=== PATIENT | female | born 1985 | race Caucasian/White ===

== ENCOUNTER 2022-09-18 15:49 | Emergency (ER) | payer OTHER, SELFPAY ==
[2022-09-18 15:57] VITALS: BP 131/87; PULSE 142; RESP 18; TEMP 36.6; O2SAT 98
--- NOTE | 2022-09-18 17:51 | ED.SKABFB ---
HPI - Skin/Abscess/Foreign Bdy General Chief complaint: Skin/Abscess/Foreign Body Stated complaint: vaginal shingles, pain Time Seen by Provider: 09/18/22 17:22 Source: patient Mode of arrival: ambulatory Limitations: no limitations History of Present Illness HPI narrative: This is a 37-year-old female that presents to the emergency department for pain associated with herpes zoster. Reports she was diagnosed with shingles on the . She has a painful rash in her groin area. Lesions have largely resolved and crusted over. She has continued pain and burning. She has been taking Tylenol and her prescribed narcotic pain medication. She is also applying lidocaine to the area and taking sitz bath's. Reports she is still having a lot of pain. Does report some discomfort with urination. Denies fever. Related Data Allergies Allergy/AdvReac Type Severity Reaction Status Date / Time prednisone Allergy Mild Palpitation Verified 09/18/22 19:16 s Review of Systems Review of Systems: CONSTITUTIONAL: Denies fever SKIN: Reports rash. Denies itching. All systems reviewed & are unremarkable except as noted in HPI and below PMFSH Past Medical History Medical History (Updated 09/18/22 @ 19:17 by Ifrah Carlin PA-C) No active medical problems Social History Social History (Updated 09/18/22 @ 17:53 by Ifrah Carlin PA-C) Smoking status: Never smoker Exam Narrative: GENERAL: Well-appearing, well-nourished, and in no acute distress. HEAD: Normocephalic, atraumatic. EYES: EOMI. EXTREMITIES: Normal range of motion. No edema. SKIN: Warm, dry, no rash. NEURO: No focal deficits. Alert and oriented x3. PSYCH: Normal mood and affect FEMALE GENITAL: Lesions to the left labia and buttock are healing with mild remaining redness/scaling Course Vital Signs Vital signs: Vital Signs Temperature 97.8 F 09/18/22 15:57 Pulse Rate 142 H 09/18/22 15:57 Respiratory Rate 18 09/18/22 15:57 Blood Pressure 131/87 09/18/22 15:57 Pulse Oximetry 98 09/18/22 15:57 Oxygen Delivery Room Air 09/18/22 15:57 Temperature 97.8 F 09/18/22 15:57 Pulse Rate 100 09/18/22 18:32 Respiratory Rate 18 09/18/22 18:32 Blood Pressure 114/80 09/18/22 18:32 Pulse Oximetry 99 09/18/22 18:32 Oxygen Delivery Room Air 09/18/22 15:57 MDM - Skin/Abscess/Foreign Bdy MDM Narrative Medical decision making narrative: Patient presents to the ER for pain control due to current herpes zoster infection of the labia and buttock. Reports she was taking Tylenol, prescribed pain medication and using sitz baths with persistent burning pain. UA with possible evidence of infection. This will be sent for a culture. Will start patient on Macrobid pending culture. Bedside test is negative. Her lesions are well healed without signs of secondary bacterial infection. Will prescribe patient Gabapentin to see if this helps with her neuralgia. She was instructed she should have close follow up with a primary provider. She was given warnings to return to the ER Lab Data Attestation: I reviewed the patient's lab results. Labs: Lab Results 09/18/22 Range/Units 18:34 Urine Color Yellow (Yellow) Urine Appearance Slightly cloudy (Clear) Urine pH 6.0 (5.0-9.0) Ur Specific [place] 1.025 (1.001-1.035) Urine Protein Negative (Negative) mg/dL Urine Glucose (UA) Negative (Negative) mg/dL Urine Ketones Negative (Negative) mg/dL Ur Blood (Man) Trace-intact (Negative) Urine Nitrate Negative (Negative) Urine Bilirubin Negative (Negative) Urine Urobilinogen 0.2 (<2.0) mg/dL Leukocyte Esterase Rfl Negative (Negative) LIDIA/UL Urine RBC 6-10 H (0-2) /hpf Urine WBC 21-30 H /hpf Ur Squamous Epith Cells Few (Few) /hpf Urine Bacteria Trace /hpf Hyaline Casts 1-2 (None) /lpf Urine Mucus Heavy H /lpf UCG Bedside Result Negative
[2022-09-18] MEDS: IBUPROFEN 600 MG TABLET PO (18:31)
[2022-09-18 18:32] VITALS: BP 114/80; PULSE 100; RESP 18; O2SAT 99
[2022-09-18 18:46] LABS: Add Urine Microscopic? YES; Appearance Urine Slightly Cloudy (Clear); Bilirubin Urine Negative (Negative); Blood Urine Trace-Intact (Negative); Color Urine Yellow (Yellow); Glucose Urine UA Negative (Negative); Ketones Urine Negative (Negative); Leukocyte Esterase Ur Negative LEU/UL (Negative); Nitrate Urine Negative (Negative); Protein Urine Negative (Negative); Specific Grav Ur 1.025 (1.001-1.035); Urobilinogen Urine 0.2 mg/dL (<2.0)
[2022-09-18 18:52] LABS: Bacteria Urine Trace /hpf; Mucus Urine Heavy /lpf; Squamous Epithelial Cell Urine Few /hpf (Few); WBC Urine 21-30 /hpf
== END 2022-09-18 19:44 | disposition home or self-care (01) ==
PROVIDERS: Emergency Provider Physician Assistant
DX: B02.9 Zoster without complications (principal); N30.00 Acute cystitis without hematuria
CPT/HCPCS: 81001; 81025; 87077; 87086; 87088; 99283; A9270

== ENCOUNTER 2024-11-14 08:25 | Outpatient (CLI) | payer OTHER, SELFPAY ==
--- NOTE | ~2024-11-14 | US_ITS ---
EXAMINATION: US soft tissue groin RT DATE: 11/14/2024 09:18 INDICATION: Recurrent palpable lump at the right groin, painful over the past 3 days. TECHNIQUE: Multiple grayscale and Doppler ultrasound images of the right inguinal region of concern w ere obtained. COMPARISON: None FINDINGS: Region of concern is a 3.1 x 1.6 x 2.2 cm anechoic fluid collection in the subcutaneous fat which is without internal flow or surrounding hyperemia on color Doppler. The fluid collection has irregular m argins with approximately 1.5 x 1.5 cm extension of echogenic fat with lobular margins into the fluid collection. On the cine images the fluid collection. The located within a 4.8 x 2.3 cm ovoid region of fat separate from the surrounding subcutaneous fat. This is positioned medial to a few normal-appe aring right inguinal lymph nodes. Location appearance suggests this represents a small amount of asci ishan and fat within a right inguinal hernia. No significant change with Valsalva and no evident perist alsing bowel. IMPRESSION: 1. Small fluid collection, likely ascites, surrounded by fat within what is likely a small right ingu inal hernia.. Reviewed, dictated and finalized at location A. [employer] IMPRESSION: 1. Small fluid collection, likely ascites, surrounded by fat within what is lik lynn a small right inguinal hernia..
--- OUTSIDE RECORDS SUMMARY | 2024-11-14 08:41 | XMS_ITS | Referral Summary ---
Author Organization [facility] Address [address] [place] [address] Care Team Providers Care Ergonomic Specialist Name Role Phone Unavailable Primary Care Provider Unavailabl e Source Comments [facility],non-owned Affiliates and Associated Physician Practices is amultiple site organization consisting of ambulatory clinics and hospital sitesin [place], [place], [place]. This disclosure is being madepursuant to the Care Everywhere program and may not contain all information available regarding this patient. Last updated 18.[facility] Allergies Active Allergy Reactions Criticality Noted Date Comments Prednisone Palpitations High 06/15/2011 Medications Be aware that medications may not be up to date on this document. Always verify current medications with the patient. No known medications Active Problems Problem Noted Date Diagnosed Date Major depressive disorder, single episode 2010 Social History Tobacco Use Types Packs/Day Years Used Date Smoking Tobacco: Some Days Smokeless Tobacco: Current Alcohol Use Standard Drinks/Week Comments No 0 (1 standard drink = 0.6 oz pur e alcohol) Sex and Gender Information Value Date Recorded Sex Assigned at Not on file Gender Identity Not on file Sexual Orientation Not on file Last Filed Vital Signs Vital Sign Reading Time Taken Comments Blood Pressure 124/70 11/24/2020 6:39 PM SENIOR PRODUCT ANALYST Pulse 71 11/24/2020 6:39 PM SENIOR PRODUCT ANALYST Temperature 36.5 C (97.7 F) 11/24/2020 6:39 PM SENIOR PRODUCT ANALYST Respiratory Rate 20 11/24/2020 6:39 PM SENIOR PRODUCT ANALYST Oxygen Saturation - - Inhaled Oxygen Concentration - - Weight - - Height - - Body Mass Index - - Plan of Treatment Not on file Procedures Procedure Name Priority Date/Time Associated Diagnosis Comments PAP THINPREP Routine 06/15/2011 from Last 3 Months or Most Recently Relevant to Health Maintenance Results * PAP THINPREP (06/15/2011) Other (qualifier value) PART OF UTERINE CERVIX / Unknown 06/15/2011 Narrative [facility] - 06/23/2011 7:50 AM CDT Preferred Lab:->[facility] December Eric Acevedo MD LAB - PATHOLOGY /CYTOLOGY ORDERABLES [facility] from Last 3 Months or Most Recently Relevant to Health Maintenance
--- OUTSIDE RECORDS SUMMARY | 2024-11-14 08:41 | XMS_ITS | Referral Summary ---
Author Organization [address] Address [address] [place] [id number] Care Team Providers Care Identifier Horse Name Role Phone No, Physician Primary Care Provider Encounters Date Type Department Care Team Description 11/13/2024 12:45 PM KEG INSPECTOR Office Visit [facility]ient Care at [address] [address] Nisreen Ronquillo NP Groin mass in female (Primary Dx); Groin discomfort, right 10/19/2024 12:15 PM KEG INSPECTOR Office Visit [facility] Care at [address] [address] Laura Osorio PA Herpes zoster without complication (Primary Dx) from Last 3 Months Allergies Active Allergy Reactions Criticality Noted Date Comments Prednisone Palpitations Reaction: Palpitations, Medications norethindrone-e .estradioL-iron () 1 mg-20 mcg (24)/75 mg (4) per tablet Take 1 tablet by mouth daily 03/16/20 22 Active busPIRone (BUSPAR) 5 mg tablet Take 1 tablet (5 mg total) by mouth 3 (three) times a day 12/25/19 24 Active lidocaine viscous (XYLOCAINE) 2 % solutionIndicat ions:Strep throat Gargle and spit 5 mls PO every six hours as needed for discomfort. Do not exceed maximum dose of of 4 times daily. 50 mL 03/06/20 24 Active Additional Information Patient not taking.Reported on 11/13/2024 benzonatate (TESSALON) 200 mg capsuleIndicati ons:Acute upper respiratory infection Take 1 capsule (200 mg total) by mouth 3 (three) times a day as needed for cough keep tessalon out of reach of children, especially children under the age of 10, due to possible serious risk such as if ingested by children under the age of 10. 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 Immunizations Immunization Administration Dates Next Due Hep A, Unspecified 09/24/2007 Social History Tobacco Use Types Packs/Day Years Used Date Smoking Tobacco: Never Assessed Comments Unknown Sex and Gender Information Value Date Recorded Sex Assigned at Not on file Legal Sex Female 9:06 PM KEG INSPECTOR Gender Identity Not on file Sexual Orientation Not on file Last Filed Vital Signs Vital Sign Reading Time Taken Comments Blood Pressure 110/68 11/13/2024 12:38 PM KEG INSPECTOR Pulse 73 11/13/2024 12:38 PM KEG INSPECTOR Temperature 36.9 C (98.4 F) 11/13/2024 12:38 PM KEG INSPECTOR Respiratory Rate 20 11/13/2024 12:38 PM KEG INSPECTOR Oxygen Saturation 96% 11/13/2024 12:38 PM KEG INSPECTOR Inhaled Oxygen Concentration - - Weight 59.9 kg (132 lb) 11/13/2024 12:38 PM KEG INSPECTOR Height 165.1 cm (5' 5 ) 10/19/2024 12:07 PM KEG INSPECTOR Body Mass Index 21.97 10/19/2024 12:07 PM KEG INSPECTOR Plan of Treatment Not on file Insurance A[employer] [place] P[employer] IDPR CIGNA [facility] OTHER Address: [facility] [address] [place] [address] IDPA Care Teams Identifier Horse Relationship Specialty Start Date End Date No, Physician PCP - General 04/15/22
--- OUTSIDE RECORDS SUMMARY | 2024-11-14 08:41 | XMS_ITS | Encounter Summary ---
Author Organization [facility] Address [address] [place] [address] Care Team Providers Care Log Handler Name Role Phone No, Physician Primary Care Provider [phone] Reason for Visit * Reason Comments Mass Lump on R side groin . C/o pain with walking and bending over. Has been on and off x 10 years. Has seen OB for this and had images done in the past and has endometriosis and it use to get larger during her menstrual cycle but doesn't have menstrual cycles anymore since starting control,. Pt reports mass will only last a few days and then go away for a year or so then come back Encounter Details Date Type Department Care Team (Late st Contact Info) Description 11/13/2024 12:45 PM GAS ENGINE REPAIRER Office Visit [facility] Care at [address] [address] Nisreen Ronquillo [employer] [address] [place] [address] [address] [place] [address] Groin mass in female (Primary Dx); Groin discomfort, right Social History Tobacco Use Types Packs/Day Years Used Date Smoking Tobacco: Never Assessed Comments Unknown Sex and Gender Information Value Date Recorded Sex Assigned at Not on file Legal Sex Female 9:06 PM GAS ENGINE REPAIRER Gender Identity Not on file Sexual Orientation Not on file documented as of this encounter Last Filed Vital Signs Vital Sign Reading Time Taken Comments Blood Pressure 110/68 11/13/2024 12:38 PM GAS ENGINE REPAIRER Pulse 73 11/13/2024 12:38 PM GAS ENGINE REPAIRER Temperature 36.9 C (98.4 F) 11/13/2024 12:38 PM GAS ENGINE REPAIRER Respiratory Rate 20 11/13/2024 12:38 PM GAS ENGINE REPAIRER Oxygen Saturation 96% 11/13/2024 12:38 PM GAS ENGINE REPAIRER Inhaled Oxygen Concentration - - Weight 59.9 kg (132 lb) 11/13/2024 12:38 PM GAS ENGINE REPAIRER Height - - Body Mass Index 21.97 10/19/2024 12:07 PM GAS ENGINE REPAIRER documented in this encounter Patient Instructions * Patient Instructions* Nisreen Ronquillo NP - 11/13/2024 12:45 PM GAS ENGINE REPAIRER --Patient is going to reach out to her OBGYN to see if they can order an ultrasound or CT --Discussed ER with patient as needed if symptoms worsen --Tylenol or ibuprofen as needed for pain --Warm compress to area as needed for pain ENGINE REPAIRER documented in this encounter Progress Notes * Nisreen Ronquillo NP - 11/13/2024 12:45 PM CST Images from the original note were not included. Subjective/Objective Patient ID: Laura Govea is a 39 y.o. female. Chief Complaint Mass (Lump on R side groin. C/o pain with walking and bending over. Has been on and off x 10 years.Has seen OB for this and had images done in the past and has endometriosis and it use to get largerduring her menstrual cycle but doesn't have menstrual cycles anymore since starting control,.Pt reports mass will only last a few days and then go away for a year or so then come back ) Patient presents to the clinic with reports of swollen mass in her right groin that occurred yesterday. Patient reports this is a chronic issue that has been happening for the past 10 years. Patient reports that she has had ultrasounds and x-rays in this area with normal results but these tests were always done when the swelling had already resolved. Patient presents today wanting to have an ultrasound or CT scan while the area is swollen. Patient has taken Tylenol and ibuprofen as needed for pain. Patient denies fevers, color change, and drainage from site. Review of Systems Constitutional: Negative for chills, fatigue and fever. Respiratory: Negative for cough. Cardiovascular: Negative for chest pain. Skin: Right groin mass Neurological: Negative for weakness and headaches. Physical Exam Vitals reviewed. Constitutional: General: She is not in acute distress. Appearance: Normal appearance. She is not ill-appearing. HENT: Head: Normocephalic. Mouth/Throat: Lips: Presho. Cardiovascular: Rate and Rhythm: Normal rate. Pulmonary: Effort: Pulmonary effort is normal. Breath sounds: Normal breath sounds. Skin: General: Skin is warm. Comments: Oval shaped mass felt in right groin. Would compare to the size of a golf ball. No warmthor fluctuance to area. No rash. Reports pain with palpation. Neurological: Mental Status: She is alert and oriented to person, place, and time. Psychiatric: Mood and Affect: Mood normal. Vitals: 11/13/24 1238 BP: 110/68 Pulse: 73 Resp: 20 Temp: 36.9 ??C (98.4 ??F) SpO2: 96% Weight: 59.9 kg (132 lb) Assessment/Plan --Patient is going to reach out to her OBGYN to see if they can order an ultrasound or CT --Discussed ER with patient as needed if symptoms worsen --Tylenol or ibuprofen as needed for pain --Warm compress to area as needed for pain Diagnoses and all orders for this visit: Groin mass in female (Primary) Groin discomfort, right Patient Education: Disposition Treatment plan including expectations, follow up, and return precautions discussed with patient/parent, verbalizes understanding. Medication dosage, use, and potential adverse reactions discussed with patient/parent. Advised to follow up with PCP if symptoms do not resolve as expected or sooner if condition worsens. Signs/symptoms warranting ER evaluation reviewed. Patient and/or guardian was given an opportunity to ask questions, questions answered. Nisreen Ronquillo NP 11/13/24 1:02 PM This office note has been partially dictated using Fantasy Buzzer software, and as a result portions of the record may have been created with this software. Occasional wrong-word or '[id number]' substitutions may have occurred due to the inherent limitations of voice recognition software. Read the chartcarefully and recognize, using context, where substitutions have occurred. ENGINE REPAIRER documented in this encounter Plan of Treatment Not on file documented as of this encounter Visit Diagnoses Diagnosis Groin mass in female- Primary Groin discomfort, right documented in this encounter Care Teams Log Handler Relationship Specialty Start Date End Date No, Physician PCP - General 04/15/22 documented as of this encounter
--- OUTSIDE RECORDS SUMMARY | 2024-11-14 08:41 | XMS_ITS | Continuity of Care Document ---
Author Organization [facility] Address [address] [place] [address] Phone Care Team Providers Care Corporate Development Manager Name Role Phone Unavailable Unavailable Unavailable Medications Medication Instructions Dosage Effective Dates (start - stop) Status Comments Vitamin Tab take 1 tablet by OR AL route every day - Active iron ER 325 mg (65 mg iron) Cap take 1 Tablet by Oral route every day - Active Procedures Procedure Date CM- Woman - Month with Face to F kenny Visit CM- Woman - Month with No Face t o Face Visit care, at-risk assessment care, at-risk enhanced service; antepartum management OFFICE O/P EST 5 MIN OFFICE O/P EST 5 MIN URINE TEST, BY VISUAL COLOR CO MPARISON METHODS URINE TEST, BY VISUAL COLOR CO MPARISON METHODS URNLS DIP STICK/TABLET RGNT AUTO W/O DEMETRI CHYLMD TRACH, DNA, AMP PROBE N.GONORRHOEAE, DNA, AMP PROB OFFICE/OUTPATIENT VISIT, EST Advance Directives Directive Yes / No Effective Date File Name No Information Encounters Encounter Description Practice Location Reason(s) For Visit Diagnoses Date Provider Providers Copied on Encounter [facility], [address], [place], [place], [address] , tel: [phone] [facility] No Information 3200 9 No Information [facility], [address], [place], [place], [id number] , tel: [phone] [facility] No Information 9 No Information OFFICE O/P EST 5 MIN [facility], [address], [place], [place], [address] , tel: [phone] [facility] PN Intake (chief complaint) state, incidental 9 No Information OFFICE O/P EST 5 MIN [facility], [address], [place], [place], [address] , tel: [phone] [facility] preg test (chief complaint) Absence of menstruation 9 [facility]. [address], [place], [place], [address], [place]. [phone] OFFICE/OUTPA TIENT VISIT, EST [facility], [address], [place], [place], [address] , tel: [phone] [facility] DyspareuniaVaginit is and vulvovaginitis, unspecifiedOther general counseling and advice on contraceptive management [facility]. [address], [place], [place], [address], [place]. [phone] Family History Family Member Type Diagnosis Age At Onset No Information Payers Payer name Insurance type Covered alliance party ID George patel(s) Medicaid - Medical CI [id number] Social History Type Description Quantity Date Captured Comments Sex Female Smoking Status No Information Chief Complaint And Reason For Visit No Information Reason For Referral Reason For Referral No Information Plan Of Treatment Date Type Action Status Goal BMP fasting. Due on 009 due Future Order: Lab Order HCG, QL, URINE (396), Appointment on: , Collected on: , Sent on: Sent History Of Present Illness Encounter Date Complaint History Of Prese nt Illness No Information Functional Status Date Functional Assessmen t No Information Instructions Date Instruction Additional Infor mation Folic acid supplement Increase fiber intake kick counts Enroll in childbirth classes Dentist at least once during pre gnancy Avoid over the count er medications other than acetominophen Avoid eating raw valerio t or unpasteurized dairy products Avoid alcohol, tobacco and recre ational drugs Increase water intake Iron supplement Wear seat belts low and snug dur ing Assessments Type Assessment Date No Information Patient Care Teams Name Effective Dates (start - stop) Status Members No Information
--- OUTSIDE RECORDS SUMMARY | 2024-11-14 08:41 | XMS_ITS | Clinical Summary ---
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 Encounters Date Type Department Care Team Description 11/13/2024 12:45 PM TOOL SETTER APPRENTICE Office Visit [facility] at [address] [address] Nisreen Ronquillo NP Groin mass in female (Primary Dx); Groin discomfort, right 10/19/2024 12:15 PM TOOL SETTER APPRENTICE Office Visit [facility] Care at [address] [address] Laura Osorio PA Herpes zoster without complication (Primary Dx) from Last 3 Months Immunizations Immunization Administration Dates Next Due Hep A, Unspecified 09/24/2007 Medical History Medical History Date Comments Encounter for supervision of normal Supervision of normal pregna ncy - (Added by TW Conv) Social History Tobacco Use Types Packs/Day Years Used Date Smoking Tobacco: Never Assessed Comments Unknown Sex and Gender Information Value Date Recorded Sex Assigned at Not on file Legal Sex Female 9:06 PM TOOL SETTER APPRENTICE Gender Identity Not on file Sexual Orientation Not on file Obstetrics History Last Filed Vital Signs Vital Sign Reading Time Taken Comments Blood Pressure 110/68 11/13/2024 12:38 PM TOOL SETTER APPRENTICE Pulse 73 11/13/2024 12:38 PM TOOL SETTER APPRENTICE Temperature 36.9 C (98.4 F) 11/13/2024 12:38 PM TOOL SETTER APPRENTICE Respiratory Rate 20 11/13/2024 12:38 PM TOOL SETTER APPRENTICE Oxygen Saturation 96% 11/13/2024 12:38 PM TOOL SETTER APPRENTICE Inhaled Oxygen Concentration - - Weight 59.9 kg (132 lb) 11/13/2024 12:38 PM TOOL SETTER APPRENTICE Height 165.1 cm (5' 5 ) 10/19/2024 12:07 PM TOOL SETTER APPRENTICE Body Mass Index 21.97 10/19/2024 12:07 PM TOOL SETTER APPRENTICE Plan of Treatment Health Maintenance Due Date Last Done Comments Cervical Cancer Screening 1985 Depression Screening 1985 Hepatitis C Screening 1985 DTaP/Tdap/Td Vaccine (1 - Tdap) 1996 Varicella Vaccines (1 of 2 - 13+ 2-dose series) 1998 Hepatitis B Screening 2003 Regular Well Visit/Exam 18-64 2003 Influenza Vaccine (#1) 2024 HPV Vaccines Aged Out No longer eligi ble based on patient's age to complete this topic Pneumococcal vaccine <65 Aged Out No longer eligible based on patient's age to complete this topic [facility] [place] CIGNA [facility] Care Teams Business Banking Representative Relationship Specialty Start Date End Date No, Physician PCP - General 04/15/22
--- OUTSIDE RECORDS SUMMARY | 2024-11-14 08:41 | XMS_ITS | Clinical Summary ---
Author Organization [facility]. Address [address] [place] [address] Care Team Providers Care Employment Law Specialist Name Role Phone Unavailable Primary Care Provider Unavailabl e Source Comments [facility]non-owned Affiliates and Associated Physician Practices is amultiple site organization consisting of ambulatory clinics and hospital sitesin [place], [place], [place] and [place]. This disclosure is being madepursuant to the Care Everywhere program and may not contain all information available regarding this patient. Last updated 18.[employer] [facility]. Allergies Active Allergy Reactions Criticality Noted Date Comments Prednisone Palpitations High 06/15/2011 Medications Be aware that medications may not be up to date on this document. Always verify current medications with the patient. No known medications Active Problems Problem Noted Date Diagnosed Date Major depressive disorder, single episode 2010 Family History Medical History Relation Name Comments CVA Neg Hx Cancer Neg Hx Cancer - Breast Neg Hx Cancer - Ovarian Neg Hx Diabetes Neg Hx Heart Disease Neg Hx Social History Tobacco Use Types Packs/Day Years [...] Comments Blood Pressure 124/70 11/24/2020 6:39 PM GRADE SETTER Pulse 71 11/24/2020 6:39 PM GRADE SETTER Temperature 36.5 C (97.7 F) 11/24/2020 6:39 PM GRADE SETTER Respiratory Rate 20 11/24/2020 6:39 PM GRADE SETTER Oxygen Saturation - - Inhaled Oxygen Concentration - - Weight - - Height - - Body Mass Index - - Plan of Treatment Health Maintenance Due Date Last Done Comments HIV SCREENING 2000 HEPATITIS C SCREENING 09/08/2003 DTAP/TDAP/TD VACCINES (1 - Tdap) 2004 HEPATITIS B VACCINE (1 of 3 - 19+ 3-dose series) 2004 PNEUMOCOCCAL VACCINE (1 of 2 - PCV) 2004 PAP SMEAR 06/15/2014 06/15/2011 COVID-19 VACCINE (1 - 2023-2 5 season) 2024 INFLUENZA VACCINE (#1) 2024 DEPRESSION SCREENING 09/24/2024 ZOSTER VACCINE (1 of 2) 2035 HIB VACCINE Aged Out No longer eligi ble based on patient's age to complete this topic HPV VACCINE Aged Out No longer eligi ble based on patient's age to complete this topic MENINGOCOCCAL (Group B) VACCINE Aged Out No longer eligible based on patient's age to complete this topic MENINGOCOCCAL VACCINE Aged Out No odalys azeem eligible based on patient's age to complete this topic Procedures Procedure Name Priority Date/Time Associated Diagnosis Comments PAP THINPREP Routine 06/15/2011 from Last 3 Months or Most Recently Relevant to Health Maintenance Results * PAP THINPREP (06/15/2011) Other (qualifier value) PART OF UTERINE CERVIX / Unknown 06/15/2011 Narrative [facility] - 06/23/2011 7:50 AM CDT Preferred Lab:->[facility] December Eric Acevedo MD LAB - PATHOLOGY /CYTOLOGY ORDERABLES [facility] from Last 3 Months or Most Recently Relevant to Health Maintenance
--- OUTSIDE RECORDS SUMMARY | 2024-11-14 08:41 | XMS_ITS | Patient Health Summary ---
Author Organization [facility] Address [address] [place] [address] Care Team Providers Care Curriculum And Assessment Coordinator Name Role Phone Unavailable Primary Care Provider Unavailabl e Note from [facility],non-owned Affiliates and Associated Physician Practices is amultiple site organization consisting of ambulatory clinics and hospital sitesin [place], [place], [place] and [place]. This disclosure is being madepursuant to the Care Everywhere program and may not contain all information available regarding this patient. Last updated 18.[facility] Allergies * Prednisone(Palpitations) -High Criticality Medications Be aware that medications may not [...] Comments Blood Pressure 124/70 11/24/2020 6:39 PM COMPUTER GAME TESTER Pulse 71 11/24/2020 6:39 PM COMPUTER GAME TESTER Temperature 36.5 C (97.7 F) 11/24/2020 6:39 PM COMPUTER GAME TESTER Respiratory Rate 20 11/24/2020 6:39 PM COMPUTER GAME TESTER Oxygen Saturation - - Inhaled Oxygen Concentration - - Weight - - Height - - Body Mass Index - - Procedures * URINALYSIS AUTO - POINT OF CARE (AMB) STL(Performed 11/24/2020) Performed for Urinary tract infection without hematuria, site unspecified * PAP THINPREP(Performed 06/15/2011) * PATHOLOGY/GENETICS HISTORICAL-ONBASE(Performed 06/15/2011) Results * URINALYSIS AUTO - POINT OF CARE (AMB) STL (11/24/2020 6:25 PM COMPUTER GAME TESTER) Clarity UA POCT cloudy [facility] Color UA POCT yellow [facility] Leukocyte UA 125 Negative [facility] Nitrite UA POCT neg Negative [facility] Urobilinogen UA 0.2 0.1 - 1.0 [facility] Protein UA POCT neg Negative [facility] pH UA 6.0 5.0 - 8.0 pH units [facility] Blood UA ++ Negative [facility] Specific [place] UA POCT 1.015 1.002 - 1.030 [facility] Ketone UA neg Negative [facility] Bilirubin UA POCT neg Negative [facility] Glucose UA neg Negative [facility] Expiration Date [id number] [facility] Lot # [id number] [facility] QC Verified Yes Yes [facility] Urine URINE / Unknown 11/24/2020 6 :25 PM COMPUTER GAME TESTER Liang Gamboa PATIENT SERVICES MANAGER-BUZZSAW OPERATOR LAB - POINT OF CARE ORDERABLES [facility] [address] [phone] * PATHOLOGY/GENETICS HISTORICAL-ONBASE (06/15/2011) 06/15/2011 Carmen Acevedo MD LAB - CHEMISTRY ORDERABLES [facility] * PAP THINPREP (06/15/2011) Other (qualifier value) PART OF UTERINE CERVIX / Unknown 06/15/2011 Narrative [facility] - 06/23/2011 7:50 AM CDT Preferred Lab:->[facility] Carmen Acevedo MD LAB - PATHOLOGY /CYTOLOGY ORDERABLES [facility]
--- OUTSIDE RECORDS SUMMARY | 2024-11-14 08:41 | XMS_ITS | Clinical Summary ---
Author Organization [facility] Address [address] [place] [address] Phone Care Team Providers Care Master Cook Name Role Phone Unavailable Primary Care Provider Unavailabl e Allergies Active Allergy Reactions Criticality Noted Date Comments Prednisone Palpitations High 06/15/2011 Reaction: Palpitations, Medications busPIRone (BUSPAR) 5 mg tablet Take 5 mg by mouth 3 times daily. 12/25/19 24 Active Norethindrn A-E estradiol-Iron () 1 mg-20 mcg (24)/75 mg (4) tablet Take active pills continuously skipping placebo pills 84 Tablet 1 10/24/19 25 Active Norethindrn A-E estradiol-Iron () 1 mg-20 mcg (24)/75 mg (4) tablet Take 1 Tablet by mouth daily. 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 Anxiety 02/04/2010 Low grade squamous intraepit helial lesion (LGSIL) on cervicovaginal cytologic smear 02/04/2010 Encounters Date Type Department Care Team Description 10/24/2024 [facility]phone [facility] [address] [place] [address] Jolene Guerrero NP Medication Refill 10/22/2024 External Device Data [facility] ABSTRACTION Provider, Abstract 10/16/2024 External Device Data [facility] ABSTRACTION Provider, Abstract from Last 3 Months Family History Medical History Relation Name Comments Healthy Brother Healthy Daughter Diabetes Father Cancer Maternal Grandfather Heart Disease Maternal Grandmother Brain Cancer Mother Lung Cancer Paternal Grandfather Heart Failure Paternal Grandmother Breast Cancer Neg Hx Colon Cancer Neg Hx Endometrial Cancer Neg Hx Ovarian Cancer Neg Hx Pancreatic Cancer Neg Hx Prostate Cancer Neg Hx Relation Name Status Comments Brother Alive Daughter Alive Father Alive Maternal Grandfather Maternal Grandmother Mother Paternal Grandfather Paternal Grandmother Social History Tobacco Use Types Packs/Day Years Used Date Smoking Tobacco: Former Cigarettes Smokeless Tobacco: Never Tobacco Cessation:Counseling Given: Not Answered Alcohol Use Standard Drinks/Week Comments Not Currently 0 (1 standard drink = 0.6 oz pur e alcohol) Comments No Sex and Gender Information Value Date Recorded Sex Assigned at Not on file Legal Sex Female 12:33 AM ROTOR WINDER Gender Identity Not on file Sexual Orientation Not on file Last Filed Vital Signs Vital Sign Reading Time Taken Comments Blood Pressure 116/68 04/10/2024 3:12 PM CDT Pulse 63 09/14/2021 11:48 AM ROTOR WINDER Temperature 36.5 C (97.7 F) 09/14/2021 11:48 AM ROTOR WINDER Respiratory Rate 16 09/14/2021 11:4 8 AM ROTOR WINDER Oxygen Saturation 100% 09/14/2021 11: 48 AM ROTOR WINDER Inhaled Oxygen Concentration - - Weight 60.2 kg (132 lb 12.8 oz) 04/10/2024 3:12 PM CDT Height 165.1 cm (5' 5 ) 04/10/2024 3:12 PM CDT Body Mass Index 22.1 04/10/2024 3:12 PM CDT Plan of Treatment Upcoming Encounters Date Type Department Care Team (Late st Contact Info) Description 04/13/2025 3:30 PM CDT [facility] [address] [place] [address] [place] [address] [address] [facility] [address] [place] [address] Health Maintenance Due Date Last Done Comments DTAP/TDAP/TD VACCINES (1 - Tdap) 2004 HEPATITIS B VACCINES (1 of 3 - 19+ 3-dose series) 2004 INFLUENZA VACCINE (#1) 2024 Preventative Visit- Commercial 09/24/2024 04/10/2024, 01/25/2023, 10/19/2021 CERVICAL CANCER SCREENING 10/19/2024 10/19/2021 HPV VACCINES Aged Out No longer eligi ble based on patient's age to complete this topic Procedures Procedure Name Priority Date/Time Associated Diagnosis Comments CERV/VAG CYTO AGE BASED SCREEN PAP W CT/NG, TRICH Routine 10/19/2021 3:17 PM ROTOR WINDER Screening for cervical cancer Screening for human papillomavirus (HPV) Screening examination for STD (sexually transmitted disease) from Last 3 Months or Most Recently Relevant to Health Maintenance Results * CERV/VAG CYTO AGE BASED SCREEN PAP W CT/NG, TRICH (10/19/2021 3:17 PM ROTOR WINDER) SEE NOTE [facility] Comment: This order for age-based cervical cancer and STI screening follows ACOG guidelines(PB 168, 140, SAB110). See individual assays for performing site location. CLINICAL INFORMATION [facility] Comment:Information not prov ided LAST MENSTRUAL PERIOD [facility] Comment:INFORMATION NOT PROV IDED PREV PAP: [facility] Comment:INFORMATION NOT PROV IDED PREV BX: [facility] Comment:INFORMATION NOT PROV IDED SOURCE [facility] Comment:Endocervix ADEQUACY: [facility] Comment: Satisfactory for evaluation. Endocervical/transformation zone component present. Age and/or menstrual status not provided PAP INTERP [facility] Comment:Negative for intraep ithelial lesion or malignancy. COMMENT (PAP TEST) [facility] Comment: This Pap test has been evaluated with computer assisted technology. FOOD QUALITY TESTER: [facility] Comment: FLO CT(ASCP) CT screening location: [place] [address] [place] [facility] SEE NOTE [facility] Comment: EXPLANATORY NOTE: The Pap is a screening test for cervical cancer. It is not a diagnostic test and is subject to false negative and false positive results. It is most reliable when a satisfactory sample, regularly obtained, is submitted with relevant clinical findings and history, and when the Pap result is evaluated along with historic and current clinical information. HPV E6/E7 Not Detected Not Detected [facility] Comment: Methodology: Quad Stayer-Mediated Amplification This assay detects E6/E7 viral messenger RNA (mRNA) from 14 high-risk HPV types (16,18,31,33,35,39,45,51,52,56,58,59,66,68). The analytical performance characteristics of this assay have been determined by [employer]. The modifications have not been cleared or approved by the FDA. This assay has been validated pursuant to the CLIA regulations and is used for clinical purposes. For additional information, please refer to [email or web address] (This link if provided for information/ educational purposes only.) C TRAC RNA NOT DETECTED NOT DETECTED [facility] N.GONORRHOEAE RNA, TMA NOT DETECTED NOT DETECTED [facility] SEE NOTE [facility] Comment: The analytical performance characteristics of this assay, when used to test SurePath(TM) specimens have been determined by [employer]. The modifications have not been cleared or approved by the FDA. This assay has been validated pursuant to the CLIA regulations and is used for clinical purposes. For additional information, please refer to [email or web address] (This link is being provided for information/ educational purposes only.) TRICHOMONAS VAGINALIS,QUALITAT CLIVE,PAP VIAL NOT DETECTED NOT DETECTED [facility] Comment: The analytical performance characteristics of this assay have been determined by [employer]. The modifications have not been cleared or approved by the FDA. This assay has been validated pursuant to the CLIA regulations and is used for clinical purposes. For additional information, please refer to [email or web address] (This link is being provided for information/ educational purposes only.) Test Performed at: [facility] [address] [place] [address] Colton Arechiga D.O., MPH SL Genital SWAB OF ENDOCERVIX / Unknown 10/19/2021 3:17 PM ROTOR WINDER 10/20/2021 3:53 AM ROTOR WINDER Jolene Guerrero NP PATHOLOGY/CYTOLOGY ORDERAB LES Final Result [facility] [address] [place] [address] from Last 3 Months or Most Recently Relevant to Health Maintenance Insurance [facility] OPEN ACCESS HMO Advance Directives For more information, please contact: [phone] * Full Code (Latest Code Status on File) Date Activated Date Inactivated Comments 09/14/2021 3:33 AM 09/14/2021 6:53 PM
== END 2024-11-14 08:26 | disposition home or self-care (01) ==
PROVIDERS: PCP Physician Assistant Medical; Visit Provider Physician Assistant Medical
DX: R19.09 Other intra-abdominal and pelvic swelling, mass and lump (principal)
CPT/HCPCS: 76882